=== PATIENT | female | born 1980 | race Caucasian/White ===

== ENCOUNTER 2016-12-14 16:08 | Emergency (ER) | payer OTHER ==
[2016-12-14 16:15] VITALS: BP 113/86; TEMP 96.9; BMI 39.4
--- NOTE | 2016-12-14 16:47 | ED.PDOC ---
General ED Provider: Dr. JIM SY JR Chief Complaint: Cough Stated Complaint: COUGH AND PAIN IN CHEST AFTER COUGHING. CALLED FAMILY MD. ORDER FOR Z-PACK AND PREDNISONE. STARTED ON BOTH MEDICATIONS.[End]12/13/16 Time Seen by Physician: 16:47 Mode of Arrival: Walk-In Information Source: Patient Exam Limitations: No limitations Primary Care Provider: JOSE CONNOR Nursing and Triage Documentation Reviewed and Agree: No Review of Systems - Review Of Systems Constitutional: Reports: Fever, Malaise Eyes: Reports: No symptoms Respiratory: Reports: Cough Cardiac: Reports: Chest pain (right lateral chest wall) GI: Reports: No symptoms : Reports: No symptoms Musculoskeletal: Reports: Muscle pain Skin: Reports: No symptoms Neurological: Reports: No symptoms Endocrine: Reports: No symptoms Hematologic/Lymphatic: Reports: No symptoms All Other Systems: Other Past Medical History - Past Medical History Previously Healthy: Yes Endocrine: Reports: None, Hypothyroid Cardiovascular: Reports: Hypertension Respiratory: Reports: None Hematological: Reports: None Gastrointestinal: Reports: None Genitourinary: Reports: None Neuro/Psych: Reports: None Musculoskeletal: Reports: None Cancer: Reports: None Last Menstrual Period: 11/04 - Surgical History General Surgical History: Reports: Cholecystectomy, Tonsillectomy - Family History Family History: Reports: Unknown - Social History Smoking Status: Never smoker Hx Substance Use: No Alcohol Screening: None - Immunizations Tetanus Shot up to Date: Yes Physical Exam - Physical Exam Appearance: Well-appearing, Obese Pain Distress: Moderate Eyes: [place], EOMI, Conjunctiva clear ENT: Ears normal, Nose normal, Oropharynx normal Neck: Supple Respiratory: Airway patent, Breath sounds clear, Breath sounds equal, Respirations nonlabored (cough ing) Cardiovascular: RRR, Pulses normal, No rub, No murmur GI/: Soft, Nontender, No masses, Bowel sounds normal, No Organomegaly Musculoskeletal: Normal strength, ROM intact, No edema, No calf tenderness ( tender over right 6th rib at ant ax line - muscular not bony tenderness) Skin: Warm, Dry, Normal color Neurological: Sensation intact, Motor intact, Reflexes intact, Cranial nerves intact, Alert, Oriented Psychiatric: Affect appropriate, Mood appropriate Critical Care Note - Critical Care Note Total Time (mins): 0 Course - Course Orders, Labs, Meds: Lab Review 12/14/16 17:00 Influenza A (Rapid) Negative Influenza B (Rapid) Negative Orders Category Date Time Status RAPID FLU A/B Stat LAB 12/14/16 17:00 Completed CHEST, 2 VIEWS PA & LAT Stat RADS 12/14/16 16:53 Completed Vital Signs: Temp Pulse Resp BP Pulse Ox 12/14/16 16:09 96.9 F L 81 24 113/86 95 Departure - Departure Time of Disposition: 18:01 Disposition: HOME SELF-CARE Discharge Problem: URTI (acute upper respiratory infection) Instructions: Upper Respiratory Infection (ED) Condition: Good Pt referred to PMD for follow-up: Yes Prescriptions: Guaifenesin/Codeine Phosphate [Robitussin AC Syrup] 10 ml PO Q6H PRN #240 ml PRN Reason: Cough Allergies/Adverse Reactions: Allergies No Known Allergies Allergy (Unverified 12/14/16 16:15) Home Medications: Ambulatory Orders Guaifenesin/Codeine Phosphate [Robitussin AC Syrup] 10 ml PO Q6H PRN #240 ml
[2016-12-14 17:24] LABS: FLU INTERNAL QC INTERNAL QC VALID; RAPID FLU A NEGATIVE (NEGATIVE); RAPID FLU B NEGATIVE (NEGATIVE)
--- NOTE | 2016-12-14 17:34 | DI ---
EXAM: Chest two views HISTORY: Cough FINDINGS: PA and lateral views of the chest were obtained and demonstrates the lungs to be well exp anded and appear clear. There is no evidence of focal infiltrate, consolidate nor concerning pulmon jett nodule or mass. Heart, pleura, anaya, mediastinum, and pulmonary vascular lung markings appeared normal. The osseous structures are without significant abnormality. IMPRESSION: No active cardiac or pulmonary disease.
== END 2016-12-14 18:05 | disposition home or self-care (01) ==
LOC: ED 16:08
DX: J06.9 Acute upper respiratory infection, unspecified (principal)
CPT/HCPCS: 87804; 99283

== ENCOUNTER 2017-04-18 10:26 | Outpatient (CLI) ==
[2017-04-18 11:20] LABS: BASOPHILS % (AUTO) 0.4 % (0.0-3.0); EOSINOPHILS # (AUTO) 0.1 K/ul (0.0-0.7); EOSINOPHILS % (AUTO) 1.3 % (0.0-7.0); HEMATOCRIT 40.1 % (37.0-47.0); HEMOGLOBIN 12.9 g/dl (12.0-16.0); IMMATURE GRANULOCYTE % (AUTO) 0.3 % (0.0-5.0); LYMPHOCYTES # (AUTO) 3.2 K/uL (0.60-3.4); LYMPHOCYTES % (AUTO) 29.4 (10.0-50.0); MEAN CORPUSCULAR HEMOGLOBIN 27.7 pg (27.0-31.0); MEAN CORPUSCULAR HGB CONC 32.2 (31.8-35.4); MEAN CORPUSCULAR VOLUME 86.1 fl (81.0-99.0); MONOCYTES # (AUTO) 0.4 K/uL (0.4-2.0); MONOCYTES % (AUTO) 3.9 (0-10); NEUTROPHILS # (AUTO) 6.9 K/ul (2.0-6.9); NEUTROPHILS % (AUTO) 64.7; PLATELET COUNT 333 10^3/uL (140-440); RED BLOOD COUNT 4.66 10^6/ul (4.20-5.40)
[2017-04-18 11:43] LABS: ALBUMIN 3.8 g/dL (3.4-5.0); ALBUMIN/GLOBULIN RATIO 1.03; ANION GAP 13.1; BILIRUBIN,TOTAL 0.51 mg/dL (0.00-1.20); BUN/CREATININE RATIO 10.89; CALCIUM 10.1 mg/dL (8.2-10.2); CREATININE 1.01 mg/dL (0.60-1.30); POTASSIUM 4.1 mmol/L (3.5-5.10); TOTAL PROTEIN 7.5 g/dL (6.4-8.2)
[2017-04-19 13:13] LABS: ANTI-NUCLEAR ANTIBODY SCREEN Positive (Negative); TESTOSTERONE 22 ng/dL (8-48)
[2017-04-20 09:23] LABS: ESTRADIOL 44.7 pg/mL (.); PROGESTERONE 0.1 ng/mL (.)
[2017-04-20 20:46] LABS: FREE TESTOSTERONE 4.1 pg/mL (0.0-4.2)
== END 2017-04-18 10:27 | disposition home or self-care (01) ==
LOC: LAB 10:26
PROVIDERS: ATTEND Physician Assistant Medical
DX: L65.9 Nonscarring hair loss, unspecified (principal)
CPT/HCPCS: 80053; 82626; 82670; 84144; 84402; 84403; 85025; 86038